=== PATIENT | male | born 1955 | race Caucasian/White ===

== ENCOUNTER 2020-02-21 14:22 | Inpatient (IN) ==
[2020-02-21 15:16] LABS: Basophils # 0.1 K/mcL (0.0-0.2); Basophils % 0.4 %; Eosinophils # 0.2 K/mcL (0.0-0.6); Hematocrit 41.8 % (37.5-50.1); Hemoglobin 12.8 g/dL (12.9-16.9); Immature Granulocytes % 0.7 % (0-4); Lymphocytes # 1.8 K/mcL (0.6-4.6); Lymphocytes % 9.8 %; Mean Corpuscular HGB Conc 30.6 g/dL (31.6-35.5); Mean Corpuscular Hemoglobin 28.3 pg (28.0-33.3); Mean Corpuscular Volume 92.3 fL (83.0-100.0); Mean Platelet Volume 9.5 fL (9.4-12.4); Monocytes # 1.5 K/mcL (0.0-1.3); Monocytes % 7.8 %; Neutrophils # 15.1 K/mcL (1.6-8.9); Platelet Count 401 K/mcL (140-400); Red Blood Count 4.53 M/mcL (4.19-5.50); Red Cell Distribution Width 14.1 % (11.5-14.5); Segmented Neutrophils % 80.3 %; White Blood Count 18.8 K/mcL (4.3-11.1)
[2020-02-21 15:36] LABS: BUN/Creatinine Ratio 21 (6-26); Blood Urea Nitrogen 30 mg/dL (8-23); Calcium 9.5 mg/dL (8.6-10.3); Carbon Dioxide 29 mEq/L (23-29); Chloride 102 mEq/L (98-107); Glucose 160 mg/dL (70-105); Osmolality,Calculated 300 (280-300); Potassium 3.9 mEq/L (3.5-5.1); Sodium 140 mEq/L (136-145); eGFR For African Americans > 60 (> 60); eGFR For Non-African Americans 50 (> 60)
[2020-02-21 15:42] LABS: Troponin I 0.08 ng/mL (< 0.04)
[2020-02-21 16:06] LABS: Adenovirus Not Detected (Not Detect); Bordetella Pertussis Not Detected (Not Detect); Chlamydophila pneumoniae Not Detected (Not Detect); Coronavirus 229E Not Detected (Not Detect); Coronavirus HKU1 Not Detected (Not Detect); Coronavirus NL63 Not Detected (Not Detect); Coronavirus OC43 Not Detected (Not Detect); Human Metapneumovirus Not Detected (Not Detect); Human Rhinovirus/Enterovirus Not Detected (Not Detect); Influenza A Subtype 2009 H1 Not Detected (Not Detect); Influenza B Not Detected (Not Detect); Mycoplasma pneumoniae Not Detected (Not Detect); Parainfluenza Virus 1 Not Detected (Not Detect); Parainfluenza Virus 2 Not Detected (Not Detect); Parainfluenza Virus 3 Not Detected (Not Detect); Parainfluenza Virus 4 Not Detected (Not Detect); Respiratory Syncytial Virus Not Detected (Not Detect); SARS-CoV-2 Not Detected (Not Detect)
[2020-02-21] MEDS ORDERED: *HR* Heparin 5,000 UNIT/ML VIAL IVP ONE (17:50)
[2020-02-21] MEDS ORDERED: *HR* Heparin 5,000 UNIT/ML VIAL IVP PRN ×2 (17:50)
[2020-02-21] MEDS ORDERED: Heparin 25,000UNIT/250ML 1/2NS 25,000 UNIT/250 ML IV.SOLN IVC SCH (18:00)
[2020-02-21 19:05] LABS: Heparin anti-factor XA UFH < 0.04 IU/mL (0.30-0.70)
[2020-02-21 19:06] LABS: Prothrombin Time 11.7 Seconds (9.4-12.1)
[2020-02-21] MEDS ORDERED: Naloxone 0.4 MG/ML INJ IVP PRN (19:23)
[2020-02-21] MEDS ORDERED: Ondansetron 4 MG/2 ML VIAL IVP PRN (19:23)
[2020-02-21] MEDS ORDERED: 0.9 % Sodium Chloride 1,000 ML IVC SCH (19:30)
[2020-02-21] MEDS ORDERED: Perflutren Lipid Microsphere 1.3 ML in 0.9 % Sodium Chloride 8.7 ML IVP PRN (21:33)
[2020-02-21] MEDS ORDERED: Nitroglycerin 0.4 MG TAB.SUBL SL PRN (21:50)
[2020-02-21] MEDS ORDERED: D5% in Water 1,000 ML IVC PRN (22:06)
[2020-02-21] MEDS ORDERED: *HR* Dextrose 50 % in Water (Vial) 50 ML VIAL IVP PRN (22:06)
[2020-02-21] MEDS ORDERED: Dextrose Gel 15 GM/37.5 ML TUBE PO PRN ×2 (22:06)
[2020-02-21] MEDS: Azithromycin 500 MG in 0.9 % Sodium Chloride 250 ML IVPB SCH (22:49)
[2020-02-21] MEDS: MethylPREDNISolone 40 MG/ML VIAL IVP SCH (22:50)
[2020-02-21] MEDS: Metoprolol 100 MG TABLET PO SCH (22:55)
[2020-02-21] MEDS: Ipratropium 1 PUFF INHALER IH SCH (23:50)
[2020-02-22] MEDS: Insulin LISPRO 300 UNITS/3 ML VIAL SQ SCH ×6 (00:47→20:18)
[2020-02-22 01:51] LABS: Basophils % 0.2 %; Eosinophils % 0.1 %; Hematocrit 40.6 % (37.5-50.1); Hemoglobin 12.7 g/dL (12.9-16.9); Immature Granulocytes % 0.7 % (0-4); Lymphocytes # 1.5 K/mcL (0.6-4.6); Lymphocytes % 8.6 %; Mean Corpuscular HGB Conc 31.3 g/dL (31.6-35.5); Mean Corpuscular Hemoglobin 29.1 pg (28.0-33.3); Mean Corpuscular Volume 93.1 fL (83.0-100.0); Mean Platelet Volume 9.8 fL (9.4-12.4); Monocytes # 0.4 K/mcL (0.0-1.3); Monocytes % 2.4 %; Neutrophils # 15.8 K/mcL (1.6-8.9); Platelet Count 399 K/mcL (140-400); Red Blood Count 4.36 M/mcL (4.19-5.50); Red Cell Distribution Width 14.2 % (11.5-14.5); White Blood Count 17.9 K/mcL (4.3-11.1)
[2020-02-22 02:03] LABS: Albumin 3.8 g/dL (3.5-5.7); Albumin/Globulin Ratio 1.3 (1.1-2.2); Bilirubin,Total 0.3 mg/dL (0.3-1.0); Potassium 4.3 mEq/L (3.5-5.1); Total Protein 6.8 g/dL (6.4-8.9)
[2020-02-22] MEDS: Ipratropium 1 PUFF INHALER IH SCH ×6 (03:46→23:47)
[2020-02-22] MEDS: MethylPREDNISolone 40 MG/ML VIAL IVP SCH (05:57)
[2020-02-22] MEDS: Metoprolol 100 MG TABLET PO SCH ×2 (08:02→20:21)
[2020-02-22] MEDS: cefTRIAXone 2,000 MG in Water for inj. (sterile) 20 ML IVP SCH (08:02)
[2020-02-22] MEDS: Dexamethasone 4 MG/ML VIAL IVP SCH (08:03)
[2020-02-22] MEDS: Aspirin 81 MG TAB.CHEW PO SCH (08:03)
[2020-02-22] MEDS: *HR* Heparin 5,000 UNIT/ML VIAL SQ SCH ×2 (13:54→21:41)
[2020-02-22] MEDS: Finasteride 5 MG TABLET PO SCH (17:09)
[2020-02-22] MEDS: NIFEdipine XL (24 HR) 30 MG TAB.ER.24 PO SCH (17:09)
[2020-02-22] MEDS: ARIPiprazole 2 MG TABLET PO SCH (17:09)
[2020-02-22] MEDS: BuPROPion SR (12 HR) 150 MG TABLET PO SCH (20:21)
[2020-02-22] MEDS: Azithromycin 500 MG in 0.9 % Sodium Chloride 250 ML IVPB SCH (21:41)
[2020-02-23] MEDS: Ipratropium 1 PUFF INHALER IH SCH ×6 (03:40→23:24)
[2020-02-23] MEDS: *HR* Heparin 5,000 UNIT/ML VIAL SQ SCH ×3 (05:44→22:20)
[2020-02-23 05:53] LABS: Hemoglobin 12.3 g/dL (12.9-16.9); Mean Corpuscular HGB Conc 30.8 g/dL (31.6-35.5); Mean Corpuscular Hemoglobin 28.3 pg (28.0-33.3); Mean Corpuscular Volume 92.2 fL (83.0-100.0); Mean Platelet Volume 9.3 fL (9.4-12.4); Platelet Count 390 K/mcL (140-400); Red Blood Count 4.34 M/mcL (4.19-5.50)
[2020-02-23 06:10] LABS: BUN/Creatinine Ratio 25 (6-26); Blood Urea Nitrogen 32 mg/dL (8-23); Calcium 8.8 mg/dL (8.6-10.3); Carbon Dioxide 30 mEq/L (23-29); Chloride 104 mEq/L (98-107); Glucose 109 mg/dL (70-105); Osmolality,Calculated 299 (280-300); Potassium 4.4 mEq/L (3.5-5.1); Sodium 141 mEq/L (136-145); eGFR For African Americans > 60 (> 60); eGFR For Non-African Americans 58 (> 60)
[2020-02-23] MEDS: cefTRIAXone 2,000 MG in Water for inj. (sterile) 20 ML IVP SCH (08:37)
[2020-02-23] MEDS: calcitrioL 0.25 MCG CAPSULE PO SCH (08:38)
[2020-02-23] MEDS: Metoprolol 100 MG TABLET PO SCH ×2 (08:38→20:04)
[2020-02-23] MEDS: NIFEdipine XL (24 HR) 30 MG TAB.ER.24 PO SCH (08:38)
[2020-02-23] MEDS: Dexamethasone 4 MG/ML VIAL IVP SCH (08:39)
[2020-02-23] MEDS: Finasteride 5 MG TABLET PO SCH (08:39)
[2020-02-23] MEDS: Aspirin 81 MG TAB.CHEW PO SCH (08:39)
[2020-02-23] MEDS: BuPROPion SR (12 HR) 150 MG TABLET PO SCH ×2 (09:02→20:04)
[2020-02-23] MEDS: Insulin LISPRO 300 UNITS/3 ML VIAL SQ SCH ×4 (09:10→20:33)
[2020-02-23] MEDS: ARIPiprazole 2 MG TABLET PO SCH (18:07)
[2020-02-23] MEDS: Azithromycin 250 MG TABLET PO SCH (22:20)
[2020-02-24] MEDS: Ipratropium 1 PUFF INHALER IH SCH ×5 (03:54→20:19)
[2020-02-24] MEDS: *HR* Heparin 5,000 UNIT/ML VIAL SQ SCH ×3 (04:35→21:07)
[2020-02-24] MEDS ORDERED: Morphine Sulfate 2 MG/ML SYRINGE IVP ONE (06:35)
[2020-02-24 08:17] LABS: Mean Corpuscular Hemoglobin 28.8 pg (28.0-33.3); Platelet Count 426 K/mcL (140-400); Red Cell Distribution Width 13.7 % (11.5-14.5); White Blood Count 15.6 K/mcL (4.3-11.1)
[2020-02-24 08:18] LABS: Hemoglobin 14.4 g/dL (12.9-16.9)
[2020-02-24] MEDS: cefTRIAXone 2,000 MG in Water for inj. (sterile) 20 ML IVP SCH (08:20)
[2020-02-24] MEDS: Insulin LISPRO 300 UNITS/3 ML VIAL SQ SCH ×4 (08:20→20:59)
[2020-02-24] MEDS: BuPROPion SR (12 HR) 150 MG TABLET PO SCH ×2 (08:21→21:07)
[2020-02-24] MEDS: Dexamethasone 4 MG/ML VIAL IVP SCH (08:21)
[2020-02-24] MEDS: Aspirin 81 MG TAB.CHEW PO SCH (08:21)
[2020-02-24] MEDS: NIFEdipine XL (24 HR) 30 MG TAB.ER.24 PO SCH (08:21)
[2020-02-24] MEDS: Finasteride 5 MG TABLET PO SCH (08:21)
[2020-02-24] MEDS: calcitrioL 0.25 MCG CAPSULE PO SCH (08:21)
[2020-02-24 08:38] LABS: Calcium 9.5 mg/dL (8.6-10.3); Potassium 3.8 mEq/L (3.5-5.1)
[2020-02-24] MEDS: Metoprolol 100 MG TABLET PO SCH ×2 (09:24→21:07)
[2020-02-24 14:05] LABS: SARS-CoV-2 by NAA Not Detected (Not Detect)
[2020-02-24] MEDS: ARIPiprazole 2 MG TABLET PO SCH (17:46)
[2020-02-24] MEDS: Azithromycin 250 MG TABLET PO SCH (21:07)
[2020-02-25] MEDS: Ipratropium 1 PUFF INHALER IH SCH ×6 (00:22→20:19)
[2020-02-25 05:16] LABS: Hematocrit 45.3 % (37.5-50.1); Hemoglobin 14.2 g/dL (12.9-16.9); Mean Corpuscular HGB Conc 31.3 g/dL (31.6-35.5); Mean Corpuscular Hemoglobin 27.8 pg (28.0-33.3); Mean Corpuscular Volume 88.6 fL (83.0-100.0); Mean Platelet Volume 9.1 fL (9.4-12.4); Platelet Count 423 K/mcL (140-400); Red Blood Count 5.11 M/mcL (4.19-5.50); Red Cell Distribution Width 13.6 % (11.5-14.5); White Blood Count 14.4 K/mcL (4.3-11.1)
[2020-02-25 05:36] LABS: BUN/Creatinine Ratio 24 (6-26); Blood Urea Nitrogen 35 mg/dL (8-23); Calcium 9.5 mg/dL (8.6-10.3); Carbon Dioxide 29 mEq/L (23-29); Chloride 99 mEq/L (98-107); Glucose 122 mg/dL (70-105); Osmolality,Calculated 293 (280-300); Sodium 137 mEq/L (136-145); eGFR For African Americans > 60 (> 60); eGFR For Non-African Americans 50 (> 60)
[2020-02-25] MEDS: *HR* Heparin 5,000 UNIT/ML VIAL SQ SCH ×3 (06:05→20:09)
[2020-02-25] MEDS: Insulin LISPRO 300 UNITS/3 ML VIAL SQ SCH ×4 (07:41→20:20)
[2020-02-25] MEDS ORDERED: Regadenoson 0.4 MG/5 ML SYRINGE IVP ONE (08:28)
[2020-02-25] MEDS: BuPROPion SR (12 HR) 150 MG TABLET PO SCH ×2 (10:26→20:09)
[2020-02-25] MEDS: Finasteride 5 MG TABLET PO SCH (10:26)
[2020-02-25] MEDS: calcitrioL 0.25 MCG CAPSULE PO SCH (10:26)
[2020-02-25] MEDS: Aspirin 81 MG TAB.CHEW PO SCH (10:26)
[2020-02-25] MEDS: Dexamethasone 4 MG/ML VIAL IVP SCH (10:26)
[2020-02-25] MEDS: cefTRIAXone 2,000 MG in Water for inj. (sterile) 20 ML IVP SCH (10:27)
[2020-02-25] MEDS ORDERED: Perflutren Lipid Microsphere 1.3 ML in 0.9 % Sodium Chloride 8.7 ML IVP PRN (11:30)
[2020-02-25] MEDS: NIFEdipine XL (24 HR) 30 MG TAB.ER.24 PO SCH (12:30)
[2020-02-25] MEDS: Metoprolol 100 MG TABLET PO SCH ×2 (12:30→20:09)
[2020-02-25] MEDS: ARIPiprazole 2 MG TABLET PO SCH (16:47)
[2020-02-25] MEDS: Azithromycin 250 MG TABLET PO SCH (20:09)
[2020-02-26] MEDS: Ipratropium 1 PUFF INHALER IH SCH ×6 (00:06→20:06)
[2020-02-26 03:39] LABS: Basophils # 0.1 K/mcL (0.0-0.2); Basophils % 0.6 %; Eosinophils % 0.1 %; Hematocrit 44.5 % (37.5-50.1); Hemoglobin 14.2 g/dL (12.9-16.9); Immature Granulocytes % 4.9 % (0-4); Lymphocytes # 2.2 K/mcL (0.6-4.6); Lymphocytes % 12.9 %; Mean Corpuscular HGB Conc 31.9 g/dL (31.6-35.5); Mean Corpuscular Hemoglobin 29.1 pg (28.0-33.3); Mean Corpuscular Volume 91.2 fL (83.0-100.0); Mean Platelet Volume 9.2 fL (9.4-12.4); Monocytes # 0.9 K/mcL (0.0-1.3); Monocytes % 5.3 %; Platelet Count 423 K/mcL (140-400); Red Blood Count 4.88 M/mcL (4.19-5.50); Red Cell Distribution Width 13.7 % (11.5-14.5); Segmented Neutrophils % 76.2 %; White Blood Count 17.1 K/mcL (4.3-11.1)
[2020-02-26 04:00] LABS: Calcium 9.3 mg/dL (8.6-10.3); Potassium 4.3 mEq/L (3.5-5.1)
[2020-02-26] MEDS: *HR* Heparin 5,000 UNIT/ML VIAL SQ SCH ×3 (05:11→20:16)
[2020-02-26] MEDS ORDERED: Regadenoson 0.4 MG/5 ML SYRINGE IVP ONE (06:09)
[2020-02-26] MEDS: Insulin LISPRO 300 UNITS/3 ML VIAL SQ SCH ×4 (07:30→20:09)
[2020-02-26] MEDS: NIFEdipine XL (24 HR) 30 MG TAB.ER.24 PO SCH (10:15)
[2020-02-26] MEDS: Aspirin 81 MG TAB.CHEW PO SCH (10:15)
[2020-02-26] MEDS: BuPROPion SR (12 HR) 150 MG TABLET PO SCH ×2 (10:16→20:15)
[2020-02-26] MEDS: Metoprolol 100 MG TABLET PO SCH ×2 (10:16→20:15)
[2020-02-26] MEDS: Finasteride 5 MG TABLET PO SCH (10:17)
[2020-02-26] MEDS: predniSONE 20 MG TABLET PO SCH (10:17)
[2020-02-26] MEDS: Cefdinir 300 MG CAPSULE PO SCH ×2 (10:17→20:15)
[2020-02-26] MEDS: 0.9 % Sodium Chloride 1,000 ML IVC SCH ×2 (10:17→17:05)
[2020-02-26] MEDS: calcitrioL 0.25 MCG CAPSULE PO SCH (10:18)
[2020-02-26] MEDS: ARIPiprazole 2 MG TABLET PO SCH (17:05)
[2020-02-26] MEDS: Azithromycin 250 MG TABLET PO SCH (20:15)
[2020-02-27] MEDS: Ipratropium 1 PUFF INHALER IH SCH ×6 (00:09→20:04)
[2020-02-27 01:20] LABS: Basophils # 0.1 K/mcL (0.0-0.2); Basophils % 0.6 %; Eosinophils # 0.1 K/mcL (0.0-0.6); Eosinophils % 0.3 %; Hemoglobin 13.6 g/dL (12.9-16.9); Immature Granulocytes % 3.8 % (0-4); Lymphocytes # 2.5 K/mcL (0.6-4.6); Lymphocytes % 12.4 %; Mean Corpuscular HGB Conc 30.9 g/dL (31.6-35.5); Mean Corpuscular Volume 90.7 fL (83.0-100.0); Mean Platelet Volume 9.4 fL (9.4-12.4); Monocytes # 0.9 K/mcL (0.0-1.3); Monocytes % 4.6 %; Neutrophils # 15.9 K/mcL (1.6-8.9); Platelet Count 405 K/mcL (140-400); Red Blood Count 4.85 M/mcL (4.19-5.50); Red Cell Distribution Width 13.9 % (11.5-14.5); Segmented Neutrophils % 78.3 %; White Blood Count 20.3 K/mcL (4.3-11.1)
[2020-02-27 01:40] LABS: Calcium 9.1 mg/dL (8.6-10.3); Potassium 4.2 mEq/L (3.5-5.1)
[2020-02-27] MEDS: 0.9 % Sodium Chloride 1,000 ML IVC SCH ×2 (03:14→20:20)
[2020-02-27] MEDS: *HR* Heparin 5,000 UNIT/ML VIAL SQ SCH ×3 (05:50→21:28)
[2020-02-27] MEDS: Insulin LISPRO 300 UNITS/3 ML VIAL SQ SCH ×4 (09:09→21:30)
[2020-02-27] MEDS: calcitrioL 0.25 MCG CAPSULE PO SCH (09:33)
[2020-02-27] MEDS: NIFEdipine XL (24 HR) 30 MG TAB.ER.24 PO SCH (09:33)
[2020-02-27] MEDS: Aspirin 81 MG TAB.CHEW PO SCH (09:33)
[2020-02-27] MEDS: Finasteride 5 MG TABLET PO SCH (09:33)
[2020-02-27] MEDS: BuPROPion SR (12 HR) 150 MG TABLET PO SCH ×2 (09:33→21:28)
[2020-02-27] MEDS: Metoprolol 100 MG TABLET PO SCH ×2 (09:33→21:28)
[2020-02-27] MEDS: Cefdinir 300 MG CAPSULE PO SCH ×2 (09:33→21:28)
[2020-02-27] MEDS: predniSONE 20 MG TABLET PO SCH (09:34)
[2020-02-27] MEDS ORDERED: *HR* Heparin 10,000 UNIT/10 ML VIAL ONE (13:15)
[2020-02-27] MEDS ORDERED: 0.9 % Sodium Chloride 1,000 ML ONE (13:15)
[2020-02-27] MEDS ORDERED: Heparin 1,000 UNITS/500 mL 500 ML ONE (13:15)
[2020-02-27] MEDS ORDERED: ISOVUE-370 200 ML INFUS..BTL ONE (13:16)
[2020-02-27] MEDS ORDERED: Nitroglycerin 1,000 MCG/10 ML VIAL IV ONE (13:16)
[2020-02-27] MEDS ORDERED: *HR* Midazolam HCl 2 MG/2 ML VIAL ONE (14:07)
[2020-02-27] MEDS ORDERED: *HR* FentaNYL (PF) 100 MCG/2 ML VIAL ONE (14:08)
[2020-02-27] MEDS: ARIPiprazole 2 MG TABLET PO SCH (18:04)
[2020-02-27] MEDS: Azithromycin 250 MG TABLET PO SCH (21:27)
[2020-02-27 22:21] LABS: Bilirubin,Urine Negative (Negative); Blood,Urine Negative (Negative); Clarity,Urine Clear (Clear); Color,Urine Light-Yellow (Yellow); Glucose,Urine (UA) 150 mg/dL (Normal); Hyaline Casts,Urine Few per lpf (None Seen); Ketones,Urine Negative (Negative); Leukocyte Esterase,Urine Negative (Negative); Mucus,Urine Few per lpf (None-Few); Nitrite,Urine Negative (Negative); PH,Urine 5.5 pH Units (5.0-8.0); Protein,Urine Negative (Neg-Trace); RBC,Urine 0-3 per hpf (0-3); Specific Gravity,Urine > 1.030 (1.010-1.025); Urobilinogen,Urine Normal (Normal); WBC,Urine 0-3 per hpf (0-3)
[2020-02-28] MEDS: Ipratropium 1 PUFF INHALER IH SCH (00:18)
[2020-02-28] MEDS: *HR* Heparin 5,000 UNIT/ML VIAL SQ SCH (05:12)
[2020-02-28 07:43] LABS: Basophils # 0.1 K/mcL (0.0-0.2); Basophils % 0.5 %; Eosinophils # 0.1 K/mcL (0.0-0.6); Eosinophils % 0.7 %; Hemoglobin 14.5 g/dL (12.9-16.9); Immature Granulocytes % 2.5 % (0-4); Lymphocytes # 3.2 K/mcL (0.6-4.6); Lymphocytes % 21.1 %; Mean Corpuscular HGB Conc 31.5 g/dL (31.6-35.5); Mean Platelet Volume 9.3 fL (9.4-12.4); Monocytes # 0.8 K/mcL (0.0-1.3); Monocytes % 5.1 %; Neutrophils # 10.7 K/mcL (1.6-8.9); Platelet Count 338 K/mcL (140-400); Red Cell Distribution Width 13.8 % (11.5-14.5); Segmented Neutrophils % 70.1 %; White Blood Count 15.2 K/mcL (4.3-11.1)
[2020-02-28 07:56] LABS: BUN/Creatinine Ratio 26 (6-26); Blood Urea Nitrogen 35 mg/dL (8-23); Calcium 9.1 mg/dL (8.6-10.3); Carbon Dioxide 29 mEq/L (23-29); Chloride 103 mEq/L (98-107); Glucose 83 mg/dL (70-105); Osmolality,Calculated 295 (280-300); Potassium 4.2 mEq/L (3.5-5.1); Sodium 139 mEq/L (136-145); eGFR For African Americans > 60 (> 60); eGFR For Non-African Americans 52 (> 60)
[2020-02-28] MEDS: Cefdinir 300 MG CAPSULE PO SCH (08:45)
[2020-02-28] MEDS: NIFEdipine XL (24 HR) 30 MG TAB.ER.24 PO SCH (08:45)
[2020-02-28] MEDS: Finasteride 5 MG TABLET PO SCH (08:45)
[2020-02-28] MEDS: Insulin LISPRO 300 UNITS/3 ML VIAL SQ SCH (08:45)
[2020-02-28] MEDS: Metoprolol 100 MG TABLET PO SCH (08:45)
[2020-02-28] MEDS: predniSONE 20 MG TABLET PO SCH (08:46)
[2020-02-28] MEDS: calcitrioL 0.25 MCG CAPSULE PO SCH (08:46)
[2020-02-28] MEDS: BuPROPion SR (12 HR) 150 MG TABLET PO SCH (08:46)
[2020-02-28] MEDS: Aspirin 81 MG TAB.CHEW PO SCH (08:47)
[2020-02-28] MEDS ORDERED: Budesonide/Formoterol 160/4.5 1 PUFF INH IH SCH (10:00)
[2020-02-28 11:32] VITALS: BP 117/71
== END 2020-02-28 13:33 | disposition home or self-care (01) | DRG 193 ==
LOC: 2NENU 14:22 → EMEROOARM 14:22 → 2NENU 20:23 → SUATTDRO 02-22 15:35 → 3BNU 02-24 16:14
PROVIDERS: ADMIT Student in an Organized Health Care Education/Training Program; ATTEND Internal Medicine